=== PATIENT | male | born 1965 | race Caucasian/White ===

== ENCOUNTER → 2021-01-30 | Outpatient (CLI) | payer OTHER ==
[2021-01-30 09:05] LABS: BASOPHILS % (AUTO) 1 % (0-1); EOSINOPHILS % (AUTO) 2 % (1-7); LYMPHOCYTES % (AUTO) 24 % (22-44); MEAN CORPUSCULAR HEMOGLOBIN 30.1 pg (27.5-34.5); MEAN CORPUSCULAR HGB CONC 34.4 g/dL (33.2-36.2); MEAN PLATELET VOLUME 7.7 fL (7.4-10.4); MONOCYTES % (AUTO) 10 % (2-9); NEUTROPHILS % (AUTO) 63 % (42-75); PLATELET COUNT 289 x10^3/uL (130-400); RED CELL DISTRIBUTION WIDTH 12.6 % (9.4-14.8)
[2021-01-30 09:07] LABS: MD NO
[2021-01-30 09:11] LABS: MICROSCOPIC NOT IND
[2021-01-30 09:16] LABS: INTERNATIONAL NORMALIZED RATIO 0.96 (0.93-1.1); PROTHROMBIN TIME 10.3 Seconds (9.6-11.5)
[2021-01-30 09:19] LABS: ALANINE AMINOTRANSFERASE 38 U/L (12-78); ALBUMIN 4.3 g/dL (3.4-5.0); ANION GAP 5 mmol/L (5-15); CALCIUM 9.1 mg/dL (8.5-10.1); CHLORIDE 108 mmol/L (98-107); CREATININE 0.91 mg/dL (0.7-1.3)
[2021-01-30 09:21] LABS: ALKALINE PHOSPHATASE 70 U/L (45-117); BILIRUBIN,TOTAL 0.5 mg/dL (0.2-1.0); TOTAL PROTEIN 7.6 g/dL (6.4-8.2)
== END | disposition home or self-care (01) ==
LOC: STAR 08:01
PROVIDERS: ATTEND Neurological Surgery
DX: Z01.812 Encounter for preprocedural laboratory examination (principal); Z20.822 Contact with and (suspected) exposure to COVID-19; M47.12 Other spondylosis with myelopathy, cervical region
CPT/HCPCS: 36415; 80053; 81003; 85025; 85610; 85730; 93005; U0003; U0005

== ENCOUNTER 2021-02-03 11:07 | Inpatient (IN) | payer OTHER ==
[~2021-02-03] VITALS: Ht 165.1 cm; Wt 96.3 kg
[~2021-02-03 11:07] MED LIST: BACITRACIN 50,000 UNIT ONE; BUPIVACAINE/PF 0.5% ONE; EPINEPHRINE 1 MG/ML, 1ML ONE; MINERAL OIL 10 ML VIAL MC ONE; VANCOMYCIN 1,000 MG ONE
[2021-02-03] MEDS ORDERED: CHLORHEXIDINE 15 ML UDC PO ONE (12:00)
[2021-02-03] MEDS ORDERED: LACTATED RINGERS 1,000 ML IV SCH (12:00)
[2021-02-03] MEDS ORDERED: NO HOME MEDS PER PT (12:00)
[2021-02-03 12:02] VITALS: BP 135/91
[2021-02-03] MEDS ORDERED: CHLORHEXIDINE 15 ML UDC ONE (12:05)
[2021-02-03] MEDS ORDERED: FENTANYL PF 100 MCG/2ML ONE ×3 (13:33→16:30)
[2021-02-03] MEDS ORDERED: MIDAZOLAM 1 MG/ML, 2ML ONE (13:33)
[2021-02-03] MEDS ORDERED: PHENYLEPHRINE 10 MG/ML ONE (14:06)
[2021-02-03] MEDS ORDERED: HYDROmorphone 1 MG/ML, 1ML INJ IVPush PRN (15:00)
[2021-02-03] MEDS ORDERED: METHOCARBAMOL 1,000 MG in DEXTROSE 5% 100 ML IV PRN (15:00)
[2021-02-03] MEDS ORDERED: HYDROcodone/APAP 7.5-325MG/15ML UDC PO PRN (15:00)
[2021-02-03] MEDS ORDERED: ONDANSETRON 2MG/ML, 2ML IVPush PRN ×2 (15:00→18:30)
[2021-02-03] MEDS ORDERED: MEPERIDINE/PF 25MG/0.5ML IVPush PRN (15:00)
[2021-02-03] MEDS ORDERED: PROMETHAZINE 25 MG/ML, 1ML IVPush PRN (15:00)
[2021-02-03] MEDS ORDERED: CEFAZOLIN 1,000 MG ONE (15:48)
[2021-02-03] MEDS ORDERED: GLYCOPYRROLATE 0.2MG/1ML, 5ML ONE (15:49)
[2021-02-03] MEDS ORDERED: ONDANSETRON 2MG/ML, 2ML ONE (15:49)
[2021-02-03] MEDS ORDERED: SUCCINYLCHOLINE 20 MG/ML, 10ML ONE (15:49)
[2021-02-03] MEDS ORDERED: ROCURONIUM 10MG/ML,5ML ONE (15:49)
[2021-02-03] MEDS ORDERED: PROPOFOL 10 MG/ML, 20ML ONE (15:49)
[2021-02-03] MEDS ORDERED: NEOSTIGMINE 1 MG/ML, 10ML ONE (15:49)
[2021-02-03] MEDS ORDERED: DEXAMETHASONE 4 MG/ML, 1ML ONE (15:49)
[2021-02-03] MEDS ORDERED: OXYcodone 5 MG/5 ML ORAL.SOL UDC ONE ×2 (16:30→17:31)
[2021-02-03] MEDS ORDERED: ACETAMINOPHEN 650 MG/20.3 ML UDC ONE (16:30)
[2021-02-03] MEDS: FENTANYL PF 100 MCG/2ML IV PRN ×2 (16:40→17:27)
[2021-02-03] MEDS: OXYcodone 5 MG/5 ML ORAL.SOL UDC PO PRN ×2 (16:55→17:30)
[2021-02-03] MEDS ORDERED: ACETAMINOPHEN 325 MG TABLET PO PRN (17:00)
[2021-02-03] MEDS ORDERED: DIAZEPAM 5 MG/ML, 2ML IVPush PRN (17:00)
[2021-02-03] MEDS ORDERED: DIAZEPAM 5 MG/ML, 2ML ONE (17:04)
[2021-02-03] MEDS ORDERED: PHARMACY MAY ADJ FOR RENAL FX MC PRN (18:30)
[2021-02-03] MEDS ORDERED: DIPHENHYDRAMINE 50 MG/ML, 1ML IVPush PRN (18:30)
[2021-02-03] MEDS ORDERED: LABETALOL 5MG/ML, 20ML IVPush PRN (18:30)
[2021-02-03] MEDS ORDERED: MAGNESIUM HYDROXIDE 8%, 30ML UDC PO PRN (18:30)
[2021-02-03] MEDS ORDERED: morphine SULFATE 10 MG/ML, 1ML IVPush PRN (18:30)
[2021-02-03] MEDS ORDERED: HYDROcodone/APAP 5/325 TABLET PO PRN (18:30)
[2021-02-03] MEDS ORDERED: BISACODYL 10 MG SUPP PR PRN (18:30)
[2021-02-03] MEDS ORDERED: SENNA/DOCUSATE TABLET PO PRN (18:30)
[2021-02-03] MEDS: SENNA/DOCUSATE TABLET PO SCH (21:30)
[2021-02-03] MEDS: TIZANIDINE 4MG TABLET PO PRN (21:53)
[2021-02-03] MEDS: NS + 20MEQ KCL 1,000 ML IV SCH (21:53)
[2021-02-03] MEDS: CEFAZOLIN PMX 1GM/50ML 50 ML IVPB SCH (21:54)
[2021-02-03] MEDS: OXYcodone IR 5MG TABLET PO PRN (22:12)
[2021-02-04 00:01] VITALS: BP 143/81
[2021-02-04] MEDS: OXYcodone IR 5MG TABLET PO PRN ×4 (02:07→11:27)
[2021-02-04 03:47] VITALS: BP 127/81
[2021-02-04] MEDS: CEFAZOLIN PMX 1GM/50ML 50 ML IVPB SCH (05:47)
[2021-02-04] MEDS: TIZANIDINE 4MG TABLET PO PRN (05:56)
[2021-02-04 07:30] VITALS: BP 134/75
[2021-02-04] MEDS: NS + 20MEQ KCL 1,000 ML IV SCH (08:30)
[2021-02-04] MEDS: SENNA/DOCUSATE TABLET PO SCH (08:32)
== END 2021-02-04 12:05 | disposition home or self-care (01) | DRG 473 ==
LOC: OUT 11:07 → ORIP 18:16 → 4NE 19:49 → DCLOUNGE 02-04 11:57
PROVIDERS: ADMIT Neurological Surgery; ATTEND Neurological Surgery
PROC: 0RT30ZZ Resection of Cervical Vertebral Disc, Open Approach (ICD-10-PCS; 2021-02-03)
PROC: 00NW0ZZ Release Cervical Spinal Cord, Open Approach (ICD-10-PCS; 2021-02-03)
PROC: 01N10ZZ Release Cervical Nerve, Open Approach (ICD-10-PCS; 2021-02-03)
PROC: 0RG20A0 Fusion of 2 or more Cervical Vertebral Joints with Interbody Fusion Device, Anterior Approach, Anterior Column, Open Approach (ICD-10-PCS; principal; 2021-02-03 14:00)
DX: M47.12 Other spondylosis with myelopathy, cervical region (principal); M47.22 Other spondylosis with radiculopathy, cervical region; J45.909 Unspecified asthma, uncomplicated; G47.30 Sleep apnea, unspecified; Z82.49 Family history of ischemic heart disease and other diseases of the circulatory system; Z80.9 Family history of malignant neoplasm, unspecified
CPT/HCPCS: 36415; 72040; S0020; 86850; 86900; C1713; G0378; J0171; J0690; J1100; J2250; J2405; J2704; J2710; J3010; J3360; J3370; J3480; C1762; C1889; J0330; J2370; J2800; J7120